=== PATIENT | female | born 1980 | race Caucasian/White ===

== ENCOUNTER → 2017-09-11 | Outpatient (CLI) | payer OTHER | LOC: M RAD 14:44 | DX: O26.841 Uterine size-date discrepancy, first trimester (principal); O34.81 Maternal care for other abnormalities of pelvic organs, first trimester; N83.291 Other ovarian cyst, right side; Z3A.01 Less than 8 weeks gestation of pregnancy | CPT/HCPCS: 76801 ==

== ENCOUNTER → 2017-10-25 | Outpatient (REF) | payer OTHER ==
[2017-10-25 12:10] LABS: BASO % 0.4 % (0.0-1.0); EOS % 0.7 % (0.0-3.0); HEMATOCRIT 38.1 % (36.0-47.0); HEMOGLOBIN 12.4 g/dl (12.0-16.0); IMMATURE GRANULOCYTE % 0.2 % (0-3.0); LYMPH # 2.1 10^3/uL (1.5-4.5); LYMPH % 37.4 % (24.0-44.0); MEAN CORPUSCULAR HEMOGLOBIN 31.2 pg (27.0-33.0); MEAN CORPUSCULAR HGB CONC 32.5 g/dl (32.0-36.5); MEAN CORPUSCULAR VOLUME 95.7 fl (80.0-96.0); MONO # 0.4 10^3/uL (0.0-0.8); MONO % 7.6 % (0.0-5.0); NEUTROPHILS % 53.7 % (36.0-66.0); PLATELET COUNT, AUTOMATED 380 10^3/uL (150-450); RED BLOOD COUNT 3.98 10^6/uL (4.00-5.40); WHITE BLOOD COUNT 5.6 10^3/uL (4.0-10.0)
[2017-10-25 12:37] LABS: ALBUMIN 4.2 GM/DL (3.2-5.2); ALKALINE PHOSPHATASE 80 U/L (45-117); ALT/SGPT 21 U/L (12-78); ANION GAP 7 MEQ/L (8-16); AST/SGOT 18 U/L (7-37); BILIRUBIN,TOTAL 0.4 MG/DL (0.2-1.0); BLOOD UREA NITROGEN 8 MG/DL (7-18); CALCIUM LEVEL 9.1 MG/DL (8.5-10.1); CARBON DIOXIDE LEVEL 26 MEQ/L (21-32); CHLORIDE LEVEL 107 MEQ/L (98-107); CHOLESTEROL LEVEL 188 MG/DL (<200); CREATININE FOR GFR 0.77 MG/DL (0.55-1.30); GLOMERULAR FILTRATION RATE > 60.0 (>60); GLUCOSE, FASTING 89 MG/DL (70-100); HDL CHOLESTEROL 50 MG/DL (>40); LDL CHOLESTEROL 120.2 MG/DL (<100); NON-HDL-C 138 MG/DL; POTASSIUM SERUM 4.5 MEQ/L (3.5-5.1); SODIUM LEVEL 140 MEQ/L (136-145); TOTAL PROTEIN 7.7 GM/DL (6.4-8.2); TRIGLYCERIDES LEVEL 89 MG/DL (<150)
[2017-10-25 13:02] LABS: PTH INTACT 70.9 PG/ML (18.5-88.0); TOTAL 25(OH) VITAMIN D 25.9 NG/ML (30.0-100.0)
[2017-10-25 14:15] LABS: ESTIMATED AVERAGE GLUCOSE 100 MG/DL (60-110); HEMOGLOBIN A1c 5.1 %
== END ==
LOC: M SFHCPLAZ 10:10
DX: Z82.49 Family history of ischemic heart disease and other diseases of the circulatory system (principal); Z83.3 Family history of diabetes mellitus; E78.5 Hyperlipidemia, unspecified; E55.9 Vitamin D deficiency, unspecified
CPT/HCPCS: 84443

== ENCOUNTER 2019-08-01 23:23 | Emergency (ER) | payer OTHER, SELFPAY ==
[~2019-08-01] VITALS: Ht 160 cm; Wt 76.4 kg
[2019-08-01 23:23] VITALS: BP 125/62
[2019-08-02] MEDS ORDERED: CEPHALEXIN 500 MG CAP PO ONE (01:15)
[2019-08-02] MEDS ORDERED: ADACEL/BOOSTRIX VACCINE (DIPHTH/PERTUSS/ACELL/TETANUS)0.5ML SYR (90715) IM ONE (01:15)
[2019-08-02] MEDS ORDERED: KEFL500C17 PO (01:34)
--- NOTE | 2019-08-02 06:38 | REP ---
Clinical: Puncture wound. Technique: AP and lateral views of the left foot. Findings: Osseous structures and joint spaces are intact and normal. No subcutaneous emphysema. No foreign body. Impression: No foreign body. Electronically Signed by Edvin Fontaine MD 08/02/2019 06:30 A
== END 2019-08-02 01:50 | disposition home or self-care (01) ==
LOC: M ED 23:23
DX: S91.332A Puncture wound without foreign body, left foot, initial encounter (principal); X58.XXXA Exposure to other specified factors, initial encounter; Y92.099 Unspecified place in other non-institutional residence as the place of occurrence of the external cause; Y93.9 Activity, unspecified; Y99.9 Unspecified external cause status

== ENCOUNTER 2019-08-29 12:20 | Emergency (ER) | payer OTHER ==
[~2019-08-29] VITALS: Ht 160 cm; Wt 81.1 kg
[~2019-08-29 12:20] MED LIST: KEFL500C17 PO
[2019-08-29 13:38] LABS: BASO % 0.3 % (0.0-1.0); EOS % 0.3 % (0.0-3.0); HEMATOCRIT 36.6 % (36.0-47.0); HEMOGLOBIN 11.8 g/dl (12.0-15.5); LYMPH # 2.5 10^3/uL (1.5-5.0); LYMPH % 27.2 % (24.0-44.0); MEAN CORPUSCULAR HEMOGLOBIN 30.4 pg (27.0-33.0); MEAN CORPUSCULAR HGB CONC 32.2 g/dl (32.0-36.5); MEAN CORPUSCULAR VOLUME 94.3 fl (80.0-96.0); MONO # 0.6 10^3/uL (0.0-0.8); MONO % 6.6 % (0.0-5.0); NEUTROPHILS # 5.9 10^3/uL (1.5-8.5); NEUTROPHILS % 65.3 % (36.0-66.0); PLATELET COUNT, AUTOMATED 380 10^3/uL (150-450); RED BLOOD COUNT 3.88 10^6/uL (4.00-5.40)
[2019-08-29 14:05] LABS: ALBUMIN 4.1 GM/DL (3.2-5.2); ALT/SGPT 18 U/L (12-78); BILIRUBIN,DIRECT 0.1 MG/DL (0.0-0.2); BILIRUBIN,TOTAL 0.3 MG/DL (0.2-1.0); BLOOD UREA NITROGEN 9 MG/DL (7-18); CALCIUM LEVEL 9.6 MG/DL (8.5-10.1); CARBON DIOXIDE LEVEL 31 MEQ/L (21-32); CHLORIDE LEVEL 103 MEQ/L (98-107); CREATININE FOR GFR 0.74 MG/DL (0.55-1.30); GLOMERULAR FILTRATION RATE > 60.0 (>58); GLUCOSE, FASTING 84 MG/DL (70-100); HCG, SERUM QUALITATIVE NEGATIVE (NEGATIVE); LIPASE 78 U/L (73-393); POTASSIUM SERUM 4.3 MEQ/L (3.5-5.1); SODIUM LEVEL 138 MEQ/L (136-145); TOTAL PROTEIN 7.7 GM/DL (6.4-8.2)
--- NOTE | 2019-08-29 17:03 | REP ---
PELVIC ULTRASOUND: Real-time sonographic evaluation of the pelvis performed utilizing transabdominal and endovaginal technique. The bladder measures 11.8 x 4.3 x 9.3 cm. The uterus measures 7.3 x 4.4 x 5.2 cm. Endometrial thickness is 14 mm. There is no endometrial fluid collection. Right ovary measures 2.2 x 1.8 x 1.5 cm and left ovary 2.7 x 0.6 x 1.6 cm. Complex dominant follicle right ovary measures 1.6 x 1.4 x 1.1 cm. No torsion is seen of either ovary with duplex Doppler evaluation. There is trace free fluid in the pelvis. IMPRESSION: Complex dominant follicle right ovary 1.6 cm in diameter. No torsion. Trace free fluid. Electronically Signed by Enoch Gao MD 08/30/2019 12:39 P
[2019-08-29] MEDS ORDERED: KETO10TAB PO (17:18)
[2019-08-29 17:25] VITALS: BP 130/75
== END 2019-08-29 17:26 | disposition home or self-care (01) ==
LOC: M ED 12:20
DX: N83.201 Unspecified ovarian cyst, right side (principal); F17.200 Nicotine dependence, unspecified, uncomplicated

== ENCOUNTER → 2020-08-04 | Outpatient (REF) | payer OTHER ==
[~2020-08-04] MED LIST changes: +KETO10TAB PO
[2020-08-04 19:00] LABS: ALBUMIN 3.8 GM/DL (3.2-5.2); ALT/SGPT 23 U/L (12-78); BILIRUBIN,TOTAL 0.3 MG/DL (0.2-1.0); BLOOD UREA NITROGEN 9 MG/DL (7-18); CALCIUM LEVEL 8.6 MG/DL (8.5-10.1); CARBON DIOXIDE LEVEL 26 MEQ/L (21-32); CHLORIDE LEVEL 105 MEQ/L (98-107); CHOLESTEROL LEVEL 233 MG/DL (<200); CHOLESTEROL RISK RATIO 4.236 (<5); CREATININE FOR GFR 0.72 MG/DL (0.55-1.30); FREE T4 0.95 NG/DL (0.76-1.46); GLOMERULAR FILTRATION RATE > 60.0 (>58); GLUCOSE, FASTING 111 MG/DL (70-100); HDL CHOLESTEROL 55 MG/DL (>40); LDL CHOLESTEROL 149 MG/DL (<100); NON-HDL-C 178 MG/DL; POTASSIUM SERUM 4.1 MEQ/L (3.5-5.1); SODIUM LEVEL 138 MEQ/L (136-145); TOTAL PROTEIN 6.8 GM/DL (6.4-8.2); TRIGLYCERIDES LEVEL 144 MG/DL (<150)
[2020-08-04 19:02] LABS: TOTAL 25(OH) VITAMIN D 18.8 NG/ML (30.0-100.0)
== END ==
LOC: M SFHCPLAZ 15:36
PROVIDERS: ATTEND Nurse Practitioner Family
DX: E78.5 Hyperlipidemia, unspecified (principal); E55.9 Vitamin D deficiency, unspecified

== ENCOUNTER 2021-08-06 10:23 | Emergency (ER) | payer OTHER ==
[~2021-08-06] VITALS: Ht 160 cm; Wt 79.5 kg
[2021-08-06] MEDS ORDERED: ACETAMINOPH W/CODEINE #3 TAB UD PO ONE (13:20)
[2021-08-06] MEDS ORDERED: ACET1TAB16 PO (13:42)
[2021-08-06 14:06] VITALS: BP 128/74
== END 2021-08-06 14:09 | disposition home or self-care (01) ==
LOC: M ED 10:23
DX: S82.431A Displaced oblique fracture of shaft of right fibula, initial encounter for closed fracture (principal); W19.XXXA Unspecified fall, initial encounter; Y92.090 Kitchen in other non-institutional residence as the place of occurrence of the external cause; Y93.9 Activity, unspecified; Y99.9 Unspecified external cause status

== ENCOUNTER → 2023-05-26 | Outpatient (CLI) | payer OTHER ==
[~2023-05-26] MED LIST changes: +ACET300T48 PO
[2023-05-26 16:04] LABS: BASO % 0.6 % (0.0-1.0); EOS # 0.1 10^3/uL (0.0-0.5); EOS % 1.2 % (0.0-3.0); HEMATOCRIT 36.5 % (36.0-47.0); HEMOGLOBIN 11.6 g/dl (12.0-15.5); LYMPH # 2.4 10^3/uL (1.5-5.0); LYMPH % 36.4 % (24.0-44.0); MEAN CORPUSCULAR HEMOGLOBIN 28.7 pg (27.0-33.0); MEAN CORPUSCULAR HGB CONC 31.8 g/dl (32.0-36.5); MEAN CORPUSCULAR VOLUME 90.3 fl (80.0-96.0); MONO # 0.5 10^3/uL (0.0-0.8); MONO % 7.6 % (2.0-8.0); NEUTROPHILS # 3.5 10^3/uL (1.5-8.5); PLATELET COUNT, AUTOMATED 473 10^3/uL (150-450); RED BLOOD COUNT 4.04 10^6/uL (4.00-5.40); WHITE BLOOD COUNT 6.6 10^3/uL (4.0-10.0)
[2023-05-26 16:30] LABS: TOTAL IRON BINDING CAPACITY 404 UG/DL (250-425)
[2023-05-26 16:31] LABS: CPK CREATINE PHOSPHOKINASE 74 U/L (34-145); IRON (FE) 67 UG/DL (50-170); PERCENT SATURATION 16.6 % (13.2-45.0)
[2023-05-26 16:34] LABS: ALBUMIN 3.9 G/DL (3.2-5.2); ALKALINE PHOSPHATASE 90 U/L (46-116); ALT/SGPT 13 U/L (7.0-40); AST/SGOT 10 U/L (<34); BILIRUBIN,TOTAL 0.4 MG/DL (0.3-1.2); BLOOD UREA NITROGEN 9 MG/DL (9-23); CALCIUM LEVEL 9.4 MG/DL (8.5-10.1); CARBON DIOXIDE LEVEL 26 MMOL/L (20-31); CHLORIDE LEVEL 102 MMOL/L (98-107); CHOLESTEROL LEVEL 201 MG/DL (<200); CHOLESTEROL RISK RATIO 3.51 (<5); CK-MB VALUE MASS < 1.0 NG/ML (<3.6); FREE T4 0.98 NG/DL (0.89-1.76); GLOMERULAR FILTRATION RATE > 60.0 (>58); GLUCOSE, FASTING 92 MG/DL (60-100); HDL CHOLESTEROL 57.2 MG/DL (>40); LDL CHOLESTEROL 116.2 MG/DL (<100); MB/CK RELATIVE INDEX 1.35 (< OR =4); NON-HDL-C 143.8 MG/DL; POTASSIUM SERUM 4.3 MMOL/L (3.5-5.1); SODIUM LEVEL 138 MMOL/L (136-145); THYROID STIMULATING HORMONE 2.661 uIU/ML (0.55-4.78); TOTAL 25(OH) VITAMIN D 20.9 NG/ML (20.0-100.0); TOTAL PROTEIN 7.1 G/DL (5.7-8.2); TRIGLYCERIDES LEVEL 138 MG/DL (<150)
== END ==
LOC: M PLALAB 12:04
PROVIDERS: ATTEND Nurse Practitioner Family
DX: R07.9 Chest pain, unspecified (principal); D64.9 Anemia, unspecified; E78.5 Hyperlipidemia, unspecified; E55.9 Vitamin D deficiency, unspecified

== ENCOUNTER → 2023-05-31 | Outpatient (CLI) | payer OTHER | LOC: M RAD 09:31 | PROVIDERS: ATTEND Nurse Practitioner Family | DX: M79.89 Other specified soft tissue disorders (principal) ==

== ENCOUNTER → 2023-08-16 | Outpatient (REF) | payer OTHER | LOC: M SFHCWAGY 10:03 | PROVIDERS: ATTEND Nurse Practitioner Family | DX: Z12.4 Encounter for screening for malignant neoplasm of cervix (principal) ==

== ENCOUNTER → 2023-08-16 | Outpatient (CLI) | payer OTHER | LOC: M WHC 08:15 | PROVIDERS: ATTEND Nurse Practitioner Family | DX: Z12.31 Encounter for screening mammogram for malignant neoplasm of breast (principal); R92.323 Mammographic fibroglandular density, bilateral breasts ==

== ENCOUNTER → 2023-08-23 | Outpatient (CLI) | payer OTHER | LOC: M RAD 12:05 | PROVIDERS: ATTEND Nurse Practitioner Family | DX: R10.2 Pelvic and perineal pain (principal) ==

== ENCOUNTER 2024-08-22 08:08 | Day surgery (SDC) | payer OTHER ==
[~2024-08-22] VITALS: Ht 160 cm; Wt 81.7 kg
[~2024-08-22 08:08] MED LIST changes: +NS 250 ML IV ONE
[2024-08-22] MEDS ORDERED: GLYCOPYRROLATE INJ 0.2 MG/ML 2 ML VIAL As Ordered ONE (09:21)
[2024-08-22] MEDS ORDERED: propofoL 200 MG/20 ML VIAL As Ordered ONE (09:22)
[2024-08-22] MEDS ORDERED: LIDOCAINE 2% 100MG/5ML SDV (FOR ANES.) As Ordered ONE (09:22)
[2024-08-22 09:47] VITALS: TEMP 97.7
[2024-08-22 10:05] VITALS: BP 145/92; O2SAT 97
== END 2024-08-22 10:07 | disposition home or self-care (01) ==
LOC: M OPP 08:08
PROVIDERS: ATTEND Internal Medicine Gastroenterology
DX: Z12.11 Encounter for screening for malignant neoplasm of colon (principal); K64.8 Other hemorrhoids; F17.210 Nicotine dependence, cigarettes, uncomplicated
CPT/HCPCS: 45378; J1596

== ENCOUNTER → 2025-01-28 | Outpatient (REF) | payer OTHER ==
[~2025-01-28] MED LIST changes: -NS 250 ML IV ONE
== END ==
LOC: M SFHCPLAZ 15:15
PROVIDERS: ATTEND Nurse Practitioner Family
DX: R39.9 Unspecified symptoms and signs involving the genitourinary system (principal)

== ENCOUNTER → 2025-02-13 | Outpatient (CLI) | payer OTHER ==
[2025-02-13 10:16] LABS: BASO # 0.0 10^3/uL (0.0-0.2); BASO % 0.5 % (0.0-1.0); EOS # 0.1 10^3/uL (0.0-0.5); EOS % 1.0 % (0.0-3.0); LYMPH # 1.9 10^3/uL (1.5-5.0); LYMPH % 31.5 % (24.0-44.0); MONO # 0.6 10^3/uL (0.0-0.8); MONO % 9.2 % (2.0-8.0); NEUTROPHILS # 3.5 10^3/uL (1.5-8.5); NEUTROPHILS % 57.6 % (36.0-66.0); PLATELET COUNT, AUTOMATED 387 10^3/uL (150-450)
[2025-02-13 10:44] LABS: ALT/SGPT 17 U/L (7.0-40); AST/SGOT 19 U/L (<34); CALCIUM LEVEL 9.4 MG/DL (8.5-10.1); CARBON DIOXIDE LEVEL 28 MMOL/L (20-31); CHLORIDE LEVEL 101 MMOL/L (98-107); CHOLESTEROL LEVEL 211 MG/DL (<200); CHOLESTEROL RISK RATIO 3.55 (<5); CREATININE FOR GFR 0.68 MG/DL (0.55-1.30); GLOMERULAR FILTRATION RATE > 90.0 (>58); LDL CHOLESTEROL 128.6 MG/DL (<100); NON-HDL-C 151.6 MG/DL; POTASSIUM SERUM 4.1 MMOL/L (3.5-5.1); SODIUM LEVEL 139 MMOL/L (136-145); TRIGLYCERIDES LEVEL 115 MG/DL (<150)
[2025-02-13 10:48] LABS: FREE T4 1.10 NG/DL (0.89-1.76); TOTAL 25(OH) VITAMIN D 29.9 NG/ML (20.0-100.0)
[2025-02-13 10:49] LABS: ESTIMATED AVERAGE GLUCOSE 111.0 MG/DL (60-110)
== END ==
LOC: M LAB 09:12
PROVIDERS: ATTEND Nurse Practitioner Family
DX: E78.5 Hyperlipidemia, unspecified (principal); E55.9 Vitamin D deficiency, unspecified; R73.01 Impaired fasting glucose